=== PATIENT | female | born 1985 | race Caucasian/White ===

== ENCOUNTER 2016-12-08 09:39 | Day surgery (SDC) | payer OTHER ==
[2016-12-08] MEDS ORDERED: LR 1,000 ML ONE (10:42)
[2016-12-08] MEDS ORDERED: KEFZOL 1 GM/D5W 50 ML ONE (10:43)
[2016-12-08] MEDS ORDERED: XYLOCAINE 1% ONE (11:12)
--- NOTE | 2016-12-08 12:03 | OPERATIVE NOTE ---
PROCEDURE DATE: 12/08/2016 PREOPERATIVE DIAGNOSIS: Abscess subcutaneously left axilla, 28 weeks . PROCEDURE: I and D. Patient was brought to the operating room. After no sedation her left axilla was prepped and draped in the appropriate manner. It was infiltrated with 10 mL of Xylocaine plane and the abscess drained. Anaerobic and aerobic cultures were obtained of the purulent material. There was no odor. The wound was irrigated with peroxide and packed loosely with quarter-inch iodoform. Sterile dressing was applied. She was subsequently transferred straight back to the outpatient area for planned early discharge. She will be seen in the office on 12/09 for packing removal, placed on oral Keflex p.o. P.o. Haydee and Joseph as well.
[2016-12-08] MEDS ORDERED: NORCO-5 ONE (12:09)
[2016-12-08] MEDS ORDERED: XANAX ONE (12:09)
[2016-12-08] MEDS ORDERED: ZOFRAN ONE (12:15)
[2016-12-08 13:50] VITALS: BP 107/67
== END 2016-12-08 12:45 | disposition home or self-care (01) ==
LOC: OR 09:39
PROVIDERS: ATTEND Surgery
DX: O26.893 Other specified pregnancy related conditions, third trimester (principal); Z3A.28 28 weeks gestation of pregnancy; L02.412 Cutaneous abscess of left axilla
CPT/HCPCS: 87070; 87075; 87077; 87186; 87205; J0690; J7120